=== PATIENT | male | born 1965 | race Caucasian/White ===

== ENCOUNTER 2018-08-26 11:46 | Emergency (ER) | payer OTHER ==
[~2018-08-26] VITALS: Ht 160 cm; Wt 79.4 kg
[2018-08-26] MEDS ORDERED: FENOFIBRATE145 MG (12:41)
[2018-08-26] MEDS ORDERED: AVAPRO150 MG (12:41)
== END 2018-08-26 18:45 | disposition home or self-care (01) ==
LOC: ER 11:46
DX: R42 Dizziness and giddiness (principal)